=== PATIENT | female | born 1990 | race Caucasian/White ===

== ENCOUNTER 2022-09-30 19:12 | Emergency (ER) | payer OTHER ==
[2022-09-30] MEDS ORDERED: Acetaminophen/Codeine 30-300mg Tablet ONE (19:45)
== END 2022-09-30 19:50 | disposition home or self-care (01) ==
LOC: BURERS 19:12
DX: G35 Multiple sclerosis (principal); I11.0 Hypertensive heart disease with heart failure; I50.9 Heart failure, unspecified; E11.9 Type 2 diabetes mellitus without complications; E78.00 Pure hypercholesterolemia, unspecified; Z79.899 Other long term (current) drug therapy; Z79.84 Long term (current) use of oral hypoglycemic drugs
CPT/HCPCS: 99283